=== PATIENT | female | born 1960 | race Caucasian/White ===

== ENCOUNTER 2025-06-25 12:50 | Day surgery (SDC) | payer MEDICARE, OTHER ==
[~2025-06-25] VITALS: Ht 170.2 cm; Wt 91.3 kg
[2025-06-25] VITALS (10 sets, daily range): BP systolic 114–132; BP diastolic 67–75; PULSE 67–83; RESP 12–18; O2SAT 97–100
[~2025-06-25 12:50] MED LIST: ASCO1CAP4 PO; CHOL100044 PO; FOLI0.4T6 PO; IODI150T PO; LACT10PA5 PO; POTA-207 PO; THIA50TA10 PO
[2025-06-25] MEDS ORDERED: LASIX POPLITEAL (13:27)
[2025-06-25] MEDS ORDERED: LASIX PO (13:28)
[2025-06-25] MEDS: albumin 25% 100mL bottle x 1 IV PRN (16:00)
--- NOTE | 2025-06-25 18:20 | PROGRESS NOTE ---
H&P - Interval Note Providers to CC ~ Patient examined and condition: Yes Interval changes as follows: Cirrhosis, recurrent ascites. No change from recent H and P. Risks benefits alt of paracentesis d/w patient. Informed consent disclosed. PEDRO HAWKINS MD Jun 25, 2025 18:20
--- NOTE | 2025-06-25 18:21 | PROGRESS NOTE ---
Progress Note - Angio Providers to CC ~ Angio Progress Note: Total of 7000cc clear yellow ascites removed, gave 25 g Albumin IV. No complications, dictated. PEDRO HAWKINS MD Jun 25, 2025 18:21
--- NOTE | 2025-06-25 18:25 | RADIOLOGY REPORT ---
PARACENTESIS THERAPEUTIC (A) Clinical information: OTHER CIRRHOSIS OF LIVER PEDRO HAWKINS MD 06/25/2025 3:08 PM HISTORY: Ascites OPERATIONS: Ultrasound-guided paracentesis. Sedation/Medication: 1% Lidocaine 10 mL subcutaneous. PROCEDURE: Ultrasound was used to examine the abdomen. The skin was marked on the left side. This area was prepped and draped sterilely. Local anesthesia was applied. A 5 Luxembourgish catheter was placed. 7000 cc of clear yellow/ edie fluid was then removed. Catheter was then removed. One vial 25 g albumin given intravenously. FINDINGS: Moderate-large volume ascites. IMPRESSION: Ultrasound-guided paracentesis
== END 2025-06-25 17:06 | disposition home or self-care (01) ==
LOC: SSTAY O 12:50
PROVIDERS: ATTEND Radiology Diagnostic Radiology
DX: K70.31 Alcoholic cirrhosis of liver with ascites (principal); E66.9 Obesity, unspecified; G47.00 Insomnia, unspecified; Z79.899 Other long term (current) drug therapy; Z68.31 Body mass index [BMI] 31.0-31.9, adult
CPT/HCPCS: 49083; A6258; A6402; C1729; P9047; A6449

== ENCOUNTER 2025-07-09 09:16 | Day surgery (SDC) | payer MEDICARE, OTHER ==
[2025-07-09] VITALS (9 sets, daily range): BP systolic 108–131; BP diastolic 61–76; PULSE 78–86; RESP 15–16; TEMP 98.5; O2SAT 98–100
[~2025-07-09] VITALS: Ht 170.2 cm; Wt 90.4 kg
[~2025-07-09 09:16] MED LIST changes: -FOLI0.4T6 PO; -IODI150T PO; +LASIX PO; -POTA-207 PO; -THIA50TA10 PO
[2025-07-09] MEDS ORDERED: LACT-373 PO (10:45)
[2025-07-09] MEDS ORDERED: THIA50TA10 PO (10:45)
[2025-07-09] MEDS ORDERED: MILK175C5 PO (10:45)
[2025-07-09] MEDS ORDERED: MULT-1085 PO (10:45)
[2025-07-09] MEDS ORDERED: POTA-208 PO (10:45)
[2025-07-09] MEDS: albumin 25% 100mL bottle x 1 IV PRN (10:54)
--- NOTE | 2025-07-09 16:07 | PROGRESS NOTE ---
H&P - Interval Note Providers to CC ~ Patient examined and condition: Yes Interval changes as follows: Paper h and p in chart today. Recurrent ascites, cirrhosis. Here for parace ntesis. PEDRO HAWKINS MD Jul 09, 2025 16:07
--- NOTE | 2025-07-09 16:08 | PROGRESS NOTE ---
Progress Note - Angio Providers to CC ~ Angio Progress Note: Total of 6000cc clear yellow fluid removed from LLQ access paracentesis. No complications, EBL zero. Dictated. PEDRO HAWKINS MD Jul 09, 2025 16:08
--- NOTE | 2025-07-09 18:27 | RADIOLOGY REPORT ---
ULTRASOUND-GUIDED PARACENTESIS PRE-PROCEDURE DIAGNOSIS: Ascites POST-PROCEDURE DIAGNOSIS: Same HISTORY: Same COMPLICATIONS: None ESTIMATED BLOOD LOSS: 0 PROCEDURE: The nature, alternatives, and risks of the procedure were discussed with the patient and informed consent was disclosed. Ultrasound was used to examine the left lower quadrant. An appropriate position was marked on the skin. After sterile preparation and draping, 1% Lidocaine 10 mL subcutaneous anesthesia was administered. The peritoneal space was entered with a 5-Slovak Yueh catheter. Approximately 6000 mL of clear yellow fluid was removed. The patient tolerated the procedure well without complication. FINDINGS: Large volume ascites IMPRESSION: Successful therapeutic paracentesis.
== END 2025-07-09 11:45 | disposition home or self-care (01) ==
LOC: SSTAY O 09:16
PROVIDERS: ATTEND Nurse Practitioner Family
DX: K70.31 Alcoholic cirrhosis of liver with ascites (principal); E66.9 Obesity, unspecified; Z90.710 Acquired absence of both cervix and uterus; Z79.899 Other long term (current) drug therapy
CPT/HCPCS: 49083; A6258; C1729; P9047

== ENCOUNTER 2025-07-17 10:13 | Day surgery (SDC) | payer MEDICARE, OTHER ==
[~2025-07-17] VITALS: Ht 171.4 cm; Wt 89.4 kg
[~2025-07-17 10:13] MED LIST changes: -ASCO1CAP4 PO; -CHOL100044 PO; +LACT-373 PO; -LACT10PA5 PO; -LASIX PO; +MILK175C5 PO; +MULT-1085 PO; +POTA-208 PO; +THIA50TA10 PO
[2025-07-17] MEDS ORDERED: normal saline 1000ml 1,000 ML IV PRN (10:45)
[2025-07-17 11:30] VITALS: BP 132/63; PULSE 82; RESP 14; TEMP 98; O2SAT 97
[2025-07-17 12:00] VITALS: BP 130/75; PULSE 79; RESP 15; O2SAT 100; O2SAT 96
[2025-07-17 12:15] VITALS: BP 125/61; PULSE 79; RESP 16; O2SAT 100
--- NOTE | 2025-07-17 12:20 | CONSULTATION REPORT - RESIDENT ---
Consult Providers to CC Resident Creating Document: SARI HYMAN MD History of Present Illness Reason for Admit\Complaint: Paracentesis History of Present Illness This is a 65-year-old female patient with a past medical history of liver cirrhosis requiring paracentesis every week presented to the hospital for paracentesis again today. She has started to feel heaviness in her abdomen and has been gaining weight. She quit drinking and using Zepbound. She has no other medical complaints or medical conditions to address. She will start following up with Dr. Edmond for her liver cirrhosis. Allergies: Coded Allergies: No Known Allergies (Unverified , 06/18/25) Home Medications Home Medications Active Reported Multi Vitamin Daily (Multivitamin) 1 Each Tablet 1 Tab PO DAILY 30 Days Potassium Chloride 20 Meq Tab.prt.sr 1 Tab PO DAILY Lactulose 10 Gram/15 Ml Solution 30 Ml PO DAILY Vitamin B-1 (Thiamine HCl) 50 Mg Tablet 2 Tab PO DAILY Past Medical History Past Medical History Liver cirrhosis Past Surgical History Surgical History Comment No significant surgical history Past Social History Social History Comment Quit drinking alcohol. Denies smoking or any other illicit drug abuse. Lives at home with the and two sons. Ambulatory ROS ROS As stated above in the HPI, otherwise all systems are reviewed and negative. Exam General: General: Awake and Alert, no acute distress. HEENT: Conjunctiva pale, Sclera jaundiced, Mucus Membranes moist. Resp: Unlabored. Lungs clear to auscultation bilaterally. Heart: Regular Rate and rhythm, normal S1 and S2 without murmur, rub or gallop. Abdomen: Distended, fluid thrill present. Bowel sounds heard Extremities: No cyanosis,clubbing or edema. Skin: Warm and Dry. Additional Plan Liver cirrhosis: Alcohol induced Quit drinking alcohol Reports starting follow up with playground aide soon Paracentesis secondary to liver cirrhosis: Weekly at this time Last paracentesis done by Dr. Arriaga on 07/09; remove 6 L of ascitic fluid Repeat paracentesis today on 07/17/2025. Procedure was uneventful Albumin 25% and IVF normal saline order in place Marcial Bear PGY3, Internal medicine resident Date of Service: Jul 17, 2025 Billing Provider: SARI HYMAN MD, DEEPANJALI, DI Jul 17, 2025 12:20
--- NOTE | 2025-07-17 12:24 | PROCEDURE NOTE- Residance ---
Procedure Note Providers to CC CC: SARI HYMAN MD ~ Planned Procedure Paracentesis for ascitic fluid Indications Alcoholic liver cirrhosis and ascites Property Appraiser Marcial Bear Type of Anesthesia Local, lidocaine Informed Consent Yes, obtained Description A time-out was performed. My hands were washed immediately prior to the procedure. I wore a sterile gloves and a sterile field was maintained throughout the procedure. The area was cleansed and draped in usual sterile fashion using chlorhexidine scrub. Anesthesia was achieved with 1% lidocaine. The left lower quadrant of the abdomen was prepped and draped in a sterile fashion using chlorhexidine scrub. 1% lidocaine was used to numb the skin, soft tissue and peritoneum. The paracentesis catheter was inserted and advanced with negative pressure until straw colored fluid was aspirated. The catheter was then connected to the vaccutainer and 7lts liters of ascitic fluid were drained. The catheter was removed and no leaking was noted. A bandaid was placed over the puncture wound. The patient tolerated the procedure well without any immediate complications. Estimated Blood Loss None Complication None Date of Service: Jul 17, 2025 Billing Provider: SARI HYMAN MD, DEEPANJALI, RES Jul 17, 2025 12:24
[2025-07-17 12:30] VITALS: BP 112/63; PULSE 82; RESP 15; O2SAT 100
[2025-07-17] MEDS: albumin 25% 100mL bottle x 1 IV PRN (12:39)
[2025-07-17 12:45] VITALS: BP 132/68; PULSE 82; RESP 15; O2SAT 97
[2025-07-17 13:00] VITALS: BP 123/65; PULSE 78; RESP 12; RESP 15; O2SAT 100
--- NOTE | 2025-07-17 14:25 | RADIOLOGY REPORT ---
PROCEDURE: ULTRASOUND GUIDED PARACENTESIS PERFORMING DOCTOR: Dr. HYMAN HISTORY: 65 Female requiring paracentesis. TECHNIQUE: The risks and benefits of the procedure including but not limited to bleeding, infection and injury to abdominal organs were explained to the patient and written informed consent was obtained. Optimal site for puncture was determined using ultrasound and the area sterilized and draped. Using a 5 Hungarian Yueh catheter, paracentesis was performed in the left lower abdomen. Approximately 7 liters of left lower abdomen fluid was removed. The patient tolerated the procedure well. There were no immediate complications. IMPRESSION: Ultrasound-guided paracentesis with no immediate complications.
== END 2025-07-17 13:20 | disposition home or self-care (01) ==
LOC: SSTAY O 10:13
PROVIDERS: ATTEND Nurse Practitioner Family
DX: K70.31 Alcoholic cirrhosis of liver with ascites (principal); E66.9 Obesity, unspecified; G47.30 Sleep apnea, unspecified; Z90.710 Acquired absence of both cervix and uterus
CPT/HCPCS: 49083; A6258; A6402; C1729; P9047; A6449

== ENCOUNTER → 2025-07-24 | Day surgery (SDC) | payer MEDICARE, OTHER ==
[2025-07-24] VITALS (7 sets, daily range): BP systolic 124–134; BP diastolic 69–77; PULSE 77–85; RESP 12–18; TEMP 98.3; O2SAT 97–99
[~2025-07-24] VITALS: Ht 170.2 cm; Wt 91.9 kg
[~2025-07-24] MED LIST changes: -MILK175C5 PO
[2025-07-24] MEDS: albumin 25% 100mL bottle x 1 IV PRN (10:05)
--- NOTE | 2025-07-24 16:42 | PROGRESS NOTE ---
H&P - Interval Note Providers to CC ~ Patient examined and condition: Yes Interval changes as follows: No interval change and paper update signed in chart. Cirrhosis and recurrent ascites here for routine paracentesis. Risks benefits alt d/w pt and informed consent disclosed. PEDRO HAWKINS MD Jul 24, 2025 16:42
--- NOTE | 2025-07-24 16:43 | PROGRESS NOTE ---
Progress Note - Angio Providers to CC ~ Angio Progress Note: LLQ paracentesis done, 9000cc clear yellow fluid removed no complication, ebl zero. Dictated. 2x 25g albumin given IV. PEDRO HAWKINS MD Jul 24, 2025 16:43
--- NOTE | 2025-07-24 16:52 | RADIOLOGY REPORT ---
ULTRASOUND-GUIDED PARACENTESIS PRE-PROCEDURE DIAGNOSIS: Cirrhosis and Ascites POST-PROCEDURE DIAGNOSIS: Same HISTORY: Same COMPLICATIONS: None ESTIMATED BLOOD LOSS: 0 PROCEDURE: The nature, alternatives, and risks of the procedure were discussed with the patient and informed consent was disclosed. Ultrasound was used to examine the left lower quadrant. An appropriate position was marked on the skin. After sterile preparation and draping, 1% Lidocaine 10 mL subcutaneous anesthesia was administered. The peritoneal space was entered with a 5-Serbian Yueh catheter. Approximately 9000 mL of clear yellow fluid was removed. A total of 50 g albumin IV given to the patient following the procedure. The patient tolerated the procedure well without complication. FINDINGS: Large volume ascites IMPRESSION: Successful therapeutic paracentesis.
== END | disposition home or self-care (01) ==
LOC: SSTAY O 08:24
PROVIDERS: ATTEND Radiology Diagnostic Radiology
DX: K70.31 Alcoholic cirrhosis of liver with ascites (principal); E66.9 Obesity, unspecified; G47.00 Insomnia, unspecified; Z79.899 Other long term (current) drug therapy; Z68.31 Body mass index [BMI] 31.0-31.9, adult
CPT/HCPCS: 49083; A6258; C1729; P9047; A6449

== ENCOUNTER 2025-07-30 06:53 | Day surgery (SDC) | payer MEDICARE, OTHER ==
[~2025-07-30] VITALS: Ht 170.2 cm; Wt 92.2 kg
[2025-07-30] VITALS (10 sets, daily range): BP systolic 114–128; BP diastolic 62–79; PULSE 71–87; RESP 14–16; TEMP 97.7; O2SAT 98–100
[2025-07-30] MEDS ORDERED: normal saline 1000ml 1,000 ML IV PRN (07:30)
[2025-07-30] MEDS: albumin 25% 100mL bottle x 1 IV PRN (07:53)
--- NOTE | 2025-07-30 07:57 | HISTORY AND PHYSICAL ---
History & Physical - Short Providers to CC ~ History of Present Illness Chief Complain & History Increase Abdominal Girth Relevant Social History\Habits Former ETOH Allergies: Coded Allergies: No Known Allergies (Unverified , 07/24/25) Home Medications Home Medications Active Reported Multi Vitamin Daily (Multivitamin) 1 Each Tablet 1 Tab PO DAILY 30 Days Potassium Chloride 20 Meq Tab.prt.sr 1 Tab PO DAILY Lactulose 10 Gram/15 Ml Solution 30 Ml PO DAILY Vitamin B-1 (Thiamine HCl) 50 Mg Tablet 2 Tab PO DAILY Past Medical History Past Medical History Alcoholic Liver Cirrhosis ROS ROS Increase abdominal girth otherwise all systems (-) Exam Vitals: Within nl ranger Cardiac: Heart: S1-2 reg Pulmonary: Clear Abdomen: Ascites (+) Neurologic: Awake, alert Advance Care Planning Advanced Care plannin - 30 Minutes Problem\Assessment\Plan Additional Plan 1-Increase Ascites due to Alcoholic Liver Cirrhosis -Therapeutic Paracentesis [place] [place] Sepsis Screening Reassessment Date: Jul 30, 2025 MICHAEL CRANE MD Jul 30, 2025 07:56
--- NOTE | 2025-07-30 09:12 | PROCEDURE NOTE CC ---
Procedure Note CC Providers to CC ~ Procedure Name: Paracentesis Description: Indication: Ascites Consent: Pt Time-out: Done Technique: US guided Anesthesia: Local Fluid: 8700ml clear yellow Complication: None EBL: 0ml Sepsis Screening Reassessment Date: Jul 30, 2025 MICHAEL RIBEIRO MD Jul 30, 2025 09:12
== END 2025-07-30 09:40 | disposition home or self-care (01) ==
LOC: SSTAY O 06:53
PROVIDERS: ATTEND Nurse Practitioner Family
DX: K70.31 Alcoholic cirrhosis of liver with ascites (principal); E66.9 Obesity, unspecified; G47.00 Insomnia, unspecified; Z79.899 Other long term (current) drug therapy; Z68.31 Body mass index [BMI] 31.0-31.9, adult
CPT/HCPCS: 49083; A6258; C1729; P9047